=== PATIENT | female | born 1980 | race Caucasian/White ===

== ENCOUNTER 2021-02-27 21:48 | Emergency (ER) | payer OTHER ==
[~2021-02-27] VITALS: Ht 165.1 cm; Wt 72.6 kg
[~2021-02-27 21:48] MED LIST: ADVIL200 M1 PO; CLEOCIN HCL150 MG PO; MEDROLDOSEPACK PO; MUCINEX TA600 MG/TA2 PO
[2021-02-28 00:05] VITALS: BP 134/68
== END 2021-02-28 00:05 | disposition home or self-care (01) ==
LOC: M.ERS 21:48
DX: S93.691A Other sprain of right foot, initial encounter (principal); Z88.6 Allergy status to analgesic agent; Z88.8 Allergy status to other drugs, medicaments and biological substances; W10.8XXA Fall (on) (from) other stairs and steps, initial encounter; Y93.89 Activity, other specified; Y92.89 Other specified places as the place of occurrence of the external cause; Y99.8 Other external cause status